=== PATIENT | male | born 2000 | race African-American/Black ===

== ENCOUNTER 2018-02-19 22:56 | Emergency (ER) | payer SELFPAY ==
[2018-02-20] MEDS ORDERED: Azithromycin TAB* 250 MG PO ONE (00:29)
[2018-02-20] MEDS ORDERED: cefTRIAXone VIAL(*) 250 MG VIAL IM ONE (00:30)
[2018-02-20] MEDS ORDERED: Lidocaine 1% INJ* 10 MG/ML 30 ML SDV INJ ONE (00:30)
[2018-02-20 01:17] LABS: Urine Appearance Cloudy; Urine Blood Negative (Negative); Urine Color Yellow; Urine Ketones Negative (Negative); Urine Protein Negative (Negative); Urine Red Blood Cell Absent (Absent); Urine Specific Gravity 1.028 (1.010-1.030); Urine Urobilinogen Negative (Negative); Urine White Blood Cell 2+(11-20/hpf) (Absent)
[2018-02-20] MEDS ORDERED: Ciprofloxacin TAB* 500 MG PO ONE (01:20)
--- NOTE | 2018-02-20 01:20 | ED ---
GI/ HPI - HPI Summary HPI Summary: 17-year-old male presents with penile discharge for the past couple days. He also admits to dysuria. He denies any urgency or frequency. No flank pain. No fevers. No nausea and no vomiting. No abdominal pain. Has had this before. has multiple partners but says that uses condoms. no testicular or groin pain. no rectal pain. - History of Current Complaint Chief Complaint: EDUrogenitalProblems Time Seen by Provider: 02/20/18 00:18 Stated Complaint: DISCHARGE OF THE PENIS Pain Intensity: 5 - Allergy/Home Medications Allergies/Adverse Reactions: Allergies Allergy/AdvReac Type Severity Reaction Status Date / Time No Known Allergies Allergy Verified 02/19/18 23:01 PMH/Surg Hx/FS Hx/Imm Hx Endocrine/Hematology History: Denies: Hx Anticoagulant Therapy Respiratory History: Denies: Hx Asthma Infectious Disease History: No Infectious Disease History: Denies: Traveled Outside the [place] in Last 30 Days - Family History Known Family History: Positive: Non-Contributory - Social History Alcohol Use: Occasionally Substance Use Type: Reports: None Smoking Status (MU): Never Smoked Tobacco Review of Systems Negative: Fever Negative: Chest Pain Negative: Shortness Of Breath Positive: dysuria, other - penile discharge All Other Systems Reviewed And Are Negative: Yes Physical Exam Triage Information Reviewed: Yes Vital Signs On Initial Exam: Initial Vitals Temp Pulse Resp BP Pulse Ox 98.3 F 50 16 140/95 97 02/19/18 22:58 02/19/18 22:58 02/19/18 22:58 02/19/18 22:58 02/19/18 22:58 Vital Signs Reviewed: Yes Appearance: Positive: Well-Appearing Skin: Positive: Warm, Dry Head/Face: Positive: Normal Head/Face Inspection Eyes: Positive: Normal, Conjunctiva Clear ENT: Positive: Pharynx normal Respiratory/Lung Sounds: Positive: Clear to Auscultation, Breath Sounds Present Cardiovascular: Positive: Normal, RRR Abdomen Description: Positive: Nontender, Soft Bowel Sounds: Positive: Present Musculoskeletal: Positive: Normal Neurological: Positive: Normal Psychiatric: Positive: Normal Diagnostics - Vital Signs Vital Signs Temp Pulse Resp BP Pulse Ox 02/19/18 22:58 98.3 F 50 16 140/95 97 - Laboratory Lab Results: Lab Results 02/20/18 Range/Units 00:52 Urine Color Yellow Urine Appearance Cloudy Urine pH 6.0 (5-9) Ur Specific [place] 1.028 (1.010-1.030) Urine Protein Negative (Negative) Urine Ketones Negative (Negative) Urine Blood Negative (Negative) Urine Nitrate Negative (Negative) Urine Bilirubin Negative (Negative) Urine Urobilinogen Negative (Negative) Ur Leukocyte Esterase 1+ A (Negative) Urine WBC (Auto) 2+(11-20/hpf) A (Absent) Urine RBC (Auto) Absent (Absent) Urine Bacteria Absent (Absent) Urine Glucose Negative (Negative) Urine Ascorbic Acid * A (Negative) Lab Statement: Any lab studies that have been ordered have been reviewed, and results considered in the medical decision making process. GIGU Course/Dx - Course Course Of Treatment: 17-year-old male presents with penile discharge for the past couple days. He also admits to dysuria. He denies any urgency or frequency. No flank pain. No fevers. No nausea and no vomiting. No abdominal pain. Has had this before. has multiple partners but says that uses condoms. no testicular or groin pain. no rectal pain. on exam nontender abd. urine shows uti. will treat with cipro. gave rocephin and azithromycin for potential std. told to have partners get tested and treated and to not have sex until all partners treated. patient understand and agrees with plan. - Diagnoses Differential Diagnoses - Male: Prostatitis, STD, Urinary Tract Infection Provider Diagnoses: UTI (urinary tract infection), Penile discharge Discharge - Sign-Out/Discharge Documenting (check all that apply): Patient Departure - Discharge Plan Condition: Good Disposition: HOME Prescriptions: Ciprofloxacin TAB* [Cipro 500 MG TAB*] 500 mg PO BID #9 tab Patient Education Materials: Urinary Tract Infection in Men (ED) Referrals: [facility] [Outside] Additional Instructions: take cipro twice a day for 5 days Drink plenty of fluids establish care with primary Return to ED if develop any new or worsening symptoms - Billing Disposition and Condition Condition: GOOD Disposition: Home
[2018-02-20 01:37] VITALS: BP 128/76
--- NOTE | 2018-02-20 14:39 | PN ---
Progress Note - Progress Note Date of Service: 02/19/18 Note: Lab called at 2:30 PM with positive gonorrhea results Patient was called at 2:35 PM to make aware of positive gonorrhea results Negative for chlamydia Patient was sent home on ciprofloxacin for unknown penile discharge However, as it is noted now that this is positive for gonorrhea, patient will discontinue his medication of ciprofloxacin He is given azithromycin 1 g orally as well as cefixime 400 mg orally both as a single dose According to up-to-date this is an appropriate medication comparable to ceftriaxone and azithromycin combination Patient states he will garbage pick up man medication immediately, will tell respective partners and understands return precautions
== END 2018-02-20 01:36 | disposition home or self-care (01) ==
LOC: ED 22:56
DX: N39.0 Urinary tract infection, site not specified (principal); R36.9 Urethral discharge, unspecified; A54.9 Gonococcal infection, unspecified
CPT/HCPCS: 81003; 81015; 87086; 87491; 87591; 96372; 99283; A9270-GY; J0696